=== PATIENT | female | born 1965 | race Caucasian/White ===

== ENCOUNTER → 2019-07-04 | Outpatient (CLI) | payer MEDICARE, MEDICAID | LOC: COL.RAD 11:30 | DX: M25.461 Effusion, right knee (principal) ==

== ENCOUNTER → 2019-08-04 | Outpatient (CLI) | payer MEDICARE, MEDICAID ==
[2019-08-04 14:33] LABS: HEMATOCRIT 41.9 % (37.0-47.0); HEMOGLOBIN 14.6 g/dl (12.5-16.0); MEAN CELL VOLUME 92 fl (80.0-100.0); MEAN CORPUSCULAR HEMOGLOBIN 32 pg (27.0-31.0); MEAN CORPUSCULAR HGB CONC 35 g/dl (33.0-37.0); MEAN PLATELET VOLUME 9.9 fl (7.4-10.4); PLATELET COUNT 335 K/mm3 (130-400); RED BLOOD COUNT 4.57 M/mm3 (4.10-5.30); REDCELL DISTRIBUTION WIDTH-CV 12.1 % (11.5-14.5)
[2019-08-04 14:56] LABS: ERYTHROCYTE SEDIMENTATION RATE 1 mm/hr (0-30)
== END ==
LOC: COL.LAB 14:07
PROVIDERS: Orthopaedic Surgery
DX: M25.561 Pain in right knee (principal)

== ENCOUNTER → 2019-08-07 | Outpatient (CLI) | payer MEDICARE, MEDICAID | LOC: COL.RAD 09:44 | DX: M25.561 Pain in right knee (principal); Z96.651 Presence of right artificial knee joint | CPT/HCPCS: A9503 ==

== ENCOUNTER 2019-11-20 18:16 | Emergency (ER) | payer MEDICARE, MEDICAID ==
[~2019-11-20] VITALS: Ht 170.2 cm; Wt 94.1 kg
[2019-11-20 18:26] VITALS: TEMP 98.2
[2019-11-20] MEDS ORDERED: VITAMIN C500 MG PO (18:55)
[2019-11-20] MEDS ORDERED: FOLIC ACID 11 MG/TA1 PO (18:55)
[2019-11-20] MEDS ORDERED: PROZAC40 MG PO (18:56)
[2019-11-20] MEDS ORDERED: LIPITOR 40MG TA40 MG PO (18:56)
[2019-11-20 18:57] LABS: BASO % 0.4 % (0.0-2.0); EOS # 0.3 (0.0-0.7); EOS % 3.6 % (0-4.0); GRAN # 4.8 (1.4-6.5); GRAN % 51.8 % (42.2-75.2); HEMATOCRIT 40.4 % (37.0-47.0); HEMOGLOBIN 13.6 g/dl (12.5-16.0); LYMPH # 3.5 (1.2-3.4); LYMPH % 37.9 % (20.0-51.0); MEAN CELL VOLUME 94 fl (80.0-100.0); MEAN CORPUSCULAR HEMOGLOBIN 32 pg (27.0-31.0); MEAN CORPUSCULAR HGB CONC 34 g/dl (33.0-37.0); MEAN PLATELET VOLUME 10.1 fl (7.4-10.4); MONO # 0.5 (0.1-0.6); MONO % 5.4 % (1.7-9.3); PLATELET COUNT 221 K/mm3 (130-400); RED BLOOD COUNT 4.28 M/mm3 (4.10-5.30); REDCELL DISTRIBUTION WIDTH-CV 11.7 % (11.5-14.5)
[2019-11-20] MEDS ORDERED: PRINZIDE 25 MG-1 TAB PO (18:57)
[2019-11-20] MEDS ORDERED: PRIL40 PO (18:57)
[2019-11-20 19:02] LABS: ALANINE AMINOTRANSFERASE 25 U/L (9-52); ALBUMIN 4.3 gm/dL (3.5-5.0); ALKALINE PHOSPHATASE 188 U/L (50-136); ANION GAP 11 mmol/L (7-16); AST,SGOT 23 U/L (15-37); BILIRUBIN,TOTAL 0.4 mg/dL (0.0-1.0); BLOOD UREA NITROGEN 21 mg/dL (7-17); CALCIUM 9.5 mg/dL (8.4-10.2); CARBON DIOXIDE 29 mmol/L (22-30); CHLORIDE 101 mmol/L (98-107); CREATINE KINASE 156 U/L (30-135); CREATININE, serum 0.74 (0.52-1.25); GLUCOSE 224 mg/dL (74-106); POTASSIUM 4.3 mmol/L (3.4-5.0); SODIUM 142 mmol/L (137-145); TOTAL PROTEIN 7.6 gm/dL (6.4-8.2)
[2019-11-20 19:13] LABS: TROPONIN-I < 0.012 ng/mL (0.000-0.035)
[2019-11-20] MEDS ORDERED: MEDROL 4MG DOSPA4 MG PO (20:41)
[2019-11-20 20:52] VITALS: BP 149/81; PULSE 73
== END 2019-11-20 20:44 | disposition home or self-care (01) ==
LOC: COL.ER 18:16
PROVIDERS: Emergency Medicine
DX: R07.81 Pleurodynia (principal); I10 Essential (primary) hypertension; F43.10 Post-traumatic stress disorder, unspecified; F32.9 Major depressive disorder, single episode, unspecified; K21.9 Gastro-esophageal reflux disease without esophagitis; F17.210 Nicotine dependence, cigarettes, uncomplicated; Z90.710 Acquired absence of both cervix and uterus; Z90.89 Acquired absence of other organs
CPT/HCPCS: J7030

== ENCOUNTER → 2020-04-27 | Outpatient (CLI) | payer MEDICARE, MEDICAID ==
[~2020-04-27] MED LIST: FOLIC ACID 11 MG/TA1 PO; LIPITOR 40MG TA40 MG PO; MEDROL 4MG DOSPA4 MG PO; PRIL40 PO; PRINZIDE 25 MG-1 TAB PO; PROZAC40 MG PO; VITAMIN C500 MG PO
== END ==
LOC: MC.RAD 14:01
DX: Z12.31 Encounter for screening mammogram for malignant neoplasm of breast (principal)